=== PATIENT | male | born 1960 | race Caucasian/White ===

== ENCOUNTER 2016-12-25 09:43 | Emergency (ER) | payer OTHER ==
[2016-12-25] MEDS ORDERED: Sodium Chloride 0.9% 1,000 ML ONE ×2 (10:05→11:25)
[2016-12-25] MEDS ORDERED: Ondansetron HCl/PF 4 MG/2 ML Vial ONE (10:05)
[2016-12-25] MEDS ORDERED: Insulin Regular 300 UNITS/3 ML VIAL ONE (10:10)
[2016-12-25 10:23] LABS: #Eosinphils 0.1 thou/uL (0.0-0.7); #Lymphocytes 0.7 thou/uL (1.20-3.40); #Monocytes 0.6 thou/uL (0.11-0.59); #Neutrophils 5.3 thou/uL (1.40-6.50); %Basophils 0.7 % (0.0-1.0); %Eosinophils 1.7 % (0.0-10.0); %Lymphocytes 10.3 % (21.0-51.0); %Monocytes 8.5 % (0.0-10.0); Hematocrit 36.7 % (42.0-52.0); Mean Platelet Volume 6.1 fL (7.4-10.4); Red Blood Cell (RBC) Count 4.12 mill/uL (4.70-6.10); White Blood Cell (WBC) Count 6.7 thou/uL (4.8-10.8)
[2016-12-25 10:28] LABS: ALT (SGPT) 18 U/L (0-55); AST (SGOT) 13 U/L (5-34); Alkaline Phosphatase 59 U/L (40-150); Anion Gap 16 mmol/L (10-20); BUN (Urea Nitrogen) 36 mg/dL (8.4-25.7); Bilirubin, Total 0.5 mg/dL (0.2-1.2); Calc. Creatinine Clearance 0 mL/min (70-130); Calcium 8.9 mg/dL (7.8-10.44); Carbon Dioxide 18 mmol/L (22-29); Chloride 108 mmol/L (98-107); Estimated GFR-MDRD 35; Globulin 2.8 g/dL (2.4-3.5); Protein, Total 6.7 g/dL (6.0-8.3)
[2016-12-25] MEDS ORDERED: Sodium Chloride 0.9% 100 ML ONE (11:20)
[2016-12-25] MEDS ORDERED: Sodium Chloride 0.9% 0 ML ONE (11:20)
== END 2016-12-25 13:22 | disposition short-term general hospital (02) ==
LOC: NAV ERS 09:43
DX: E10.10 Type 1 diabetes mellitus with ketoacidosis without coma (principal); N28.9 Disorder of kidney and ureter, unspecified; I10 Essential (primary) hypertension; E78.5 Hyperlipidemia, unspecified; Z79.84 Long term (current) use of oral hypoglycemic drugs; Z79.82 Long term (current) use of aspirin; Z87.891 Personal history of nicotine dependence
CPT/HCPCS: 36416; 80053; 82010; 85025; 93005; 96361; 96365; 96366; 96375; 96376; J1815; J2405; J7050

== ENCOUNTER 2017-02-13 12:42 | Outpatient (CLI) | payer OTHER ==
[2017-02-13 14:00] LABS: BUN (Urea Nitrogen) 28 mg/dL (8.4-25.7); Calc. Creatinine Clearance 0 mL/min (70-130); Estimated GFR-MDRD 41; Phosphorus 3.3 mg/dL (2.3-4.7); Potassium 5.4 mmol/L (3.5-5.1)
[2017-02-14 17:31] LABS: Creatinine, Urine 59.33 mg/dL (63-166)
== END 2017-02-13 12:43 | disposition home or self-care (01) ==
LOC: NAV SJFMSP 12:42
PROVIDERS: ATTEND Internal Medicine Nephrology
DX: I12.9 Hypertensive chronic kidney disease with stage 1 through stage 4 chronic kidney disease, or unspecified chronic kidney disease (principal); N18.3 Chronic kidney disease, stage 3 (moderate); R80.9 Proteinuria, unspecified
CPT/HCPCS: 36415; 82565; 82570; 84100; 84132; 84156; 84520

== ENCOUNTER 2017-06-03 20:38 | Emergency (ER) | payer OTHER ==
[2017-06-03 21:24] LABS: Band 5 % (5-11); Eosinophils 2 % (0-10); Hemoglobin 10.3 g/dL (14.0-18.0); Lymphocytes 8 % (21-51); MDiff Complete? YES; Mean Corpuscular HGB CONC 33.5 g/dL (32.0-36.0); Mean Corpuscular Hemoglobin 29.6 pg (27.0-31.0); Mean Corpuscular Volume 88.3 fl (80.0-94.0); Mean Platelet Volume 6.1 fL (7.4-10.4); Monocytes 7 % (0-10); Neutrophil 78 % (42-75); PLT Morphology Comment Appears Adequate; Platelet Count 236 thou/uL (130-400); RBC Distribution Width 13.6 % (11.5-14.5); RBC Morphology Normal; White Blood Cell (WBC) Count 9.7 thou/uL (4.8-10.8)
[2017-06-03] MEDS ORDERED: Adacel (T-DAP) 0.5 ML VIAL ONE (21:26)
[2017-06-03 21:30] LABS: ALT (SGPT) 18 U/L (8-55); AST (SGOT) 13 U/L (5-34); Albumin 3.6 g/dL (3.5-5.0); Alkaline Phosphatase 66 U/L (40-150); Anion Gap 14 mmol/L (10-20); BUN (Urea Nitrogen) 35 mg/dL (8.4-25.7); Bilirubin, Total 0.3 mg/dL (0.2-1.2); Calc. Creatinine Clearance 0 mL/min (70-130); Calcium 8.7 mg/dL (7.8-10.44); Carbon Dioxide 20 mmol/L (22-29); Chloride 105 mmol/L (98-107); Estimated GFR-MDRD 30; Globulin 2.6 g/dL (2.4-3.5); Glucose 235 mg/dL (70-105); Protein, Total 6.2 g/dL (6.0-8.3); Sodium 135 mmol/L (136-145)
--- NOTE | 2017-06-03 21:49 | RAD ---
RIGHT FOOT THREE VIEWS 06/03/17 HISTORY: Right foot pain and swelling with redness. Lisfranc joint alignment is anatomic. Pes planus is evident on the lateral view. There are degenerat kianna changes throughout the foot with osteophytosis, joint space narrowing, and subchondral sclerosis . Internal fixation of the medial and lateral malleoli is partially visualized. There is calcificati on in the arterial structures. IMPRESSION: 1. Postoperative changes of the right lower lobe. 2. Moderate osteoarthritic changes of the right foot. No acute osseous abnormalities are demons trated. 3. Atherosclerosis. POS: [facility]
[2017-06-03] MEDS ORDERED: Sodium Chloride 0.9% 250 ML 250 ML ONE (22:01)
[2017-06-03] MEDS ORDERED: Sodium Chloride 0.9% 1,000 ML ONE (23:02)
== END 2017-06-04 00:26 | disposition short-term general hospital (02) ==
LOC: NAV ERS 20:41
DX: L03.115 Cellulitis of right lower limb (principal); S91.331A Puncture wound without foreign body, right foot, initial encounter; E11.40 Type 2 diabetes mellitus with diabetic neuropathy, unspecified; Z23 Encounter for immunization; I25.10 Atherosclerotic heart disease of native coronary artery without angina pectoris; I10 Essential (primary) hypertension; E78.5 Hyperlipidemia, unspecified; Z86.73 Personal history of transient ischemic attack (TIA), and cerebral infarction without residual deficits; Z87.891 Personal history of nicotine dependence; Z79.82 Long term (current) use of aspirin; Z79.84 Long term (current) use of oral hypoglycemic drugs; Z79.4 Long term (current) use of insulin; Z79.899 Other long term (current) drug therapy; W45.8XXA Other foreign body or object entering through skin, initial encounter
CPT/HCPCS: 36415; 80053; 83605; 85025; 85652; 86140; 87040; 90471; 90715; 96365; 96367; J1956; J3370; J7050

== ENCOUNTER 2017-10-21 08:19 | Emergency (ER) | payer OTHER ==
[2017-10-21] MEDS ORDERED: Acetaminophen 500 MG TAB ONE (08:38)
--- NOTE | 2017-10-21 10:14 | RAD ---
3 VIEWS LEFT WRIST: Date: 10/21/17 HISTORY: Pain x2 days. No known reported injury. COMPARISON: None. FINDINGS: Intercarpal and radiocarpal joint spaces are preserved. No fracture. No cortical irregularity. No per iosteal reaction. Vascular calcifications are noted. No significant joint effusion or soft tissue swelling. IMPRESSION: Unremarkable left wrist 3 views. POS: [facility]
== END 2017-10-21 09:11 | disposition home or self-care (01) ==
LOC: NAV ERS 08:19
DX: S60.212A Contusion of left wrist, initial encounter (principal); M19.90 Unspecified osteoarthritis, unspecified site; I25.10 Atherosclerotic heart disease of native coronary artery without angina pectoris; E11.9 Type 2 diabetes mellitus without complications; E03.9 Hypothyroidism, unspecified; I10 Essential (primary) hypertension; Z79.82 Long term (current) use of aspirin; E78.5 Hyperlipidemia, unspecified; Z79.84 Long term (current) use of oral hypoglycemic drugs; Z79.899 Other long term (current) drug therapy; W22.8XXA Striking against or struck by other objects, initial encounter

== ENCOUNTER 2017-11-18 13:29 | Emergency (ER) | payer OTHER ==
[2017-11-18] MEDS ORDERED: Acetaminophen/Codeine 30-300mg Tablet ONE (13:53)
--- NOTE | 2017-11-18 15:30 | RAD ---
LEFT RIB SERIES 4 VIEWS: CLINICAL HISTORY: Cough with rib pain. FINDINGS: No displaced left rib fracture visualized. There is a mild pleural-based density of the inferior lef t chest. Evidence of prior sternotomy partially visualized. There is incidental note of metallic fusion of the cervicothoracic region. IMPRESSION: 1. No displaced left rib fracture. 2. Pleural-based density of the inferior left chest. Consider followup with dedicated chest radiogr aph series, 2 view. POS: [facility]
== END 2017-11-18 14:33 | disposition home or self-care (01) ==
LOC: NAV ERS 13:29
DX: S29.011A Strain of muscle and tendon of front wall of thorax, initial encounter (principal); I25.10 Atherosclerotic heart disease of native coronary artery without angina pectoris; E11.9 Type 2 diabetes mellitus without complications; E03.9 Hypothyroidism, unspecified; E78.5 Hyperlipidemia, unspecified; I10 Essential (primary) hypertension; Z79.82 Long term (current) use of aspirin; Z79.899 Other long term (current) drug therapy; Z79.84 Long term (current) use of oral hypoglycemic drugs; X58.XXXA Exposure to other specified factors, initial encounter

== ENCOUNTER 2018-04-14 01:48 | Emergency (ER) | payer OTHER ==
[2018-04-14 02:29] LABS: ALT (SGPT) 26 U/L (8-55); AST (SGOT) 17 U/L (5-34); Albumin 4.1 g/dL (3.5-5.0); Alkaline Phosphatase 73 U/L (40-150); Anion Gap 16 mmol/L (10-20); BUN (Urea Nitrogen) 51 mg/dL (8.4-25.7); Bilirubin, Total 0.2 mg/dL (0.2-1.2); Calc. Creatinine Clearance 0 mL/min (70-130); Calcium 9.6 mg/dL (7.8-10.44); Carbon Dioxide 22 mmol/L (22-29); Chloride 105 mmol/L (98-107); Estimated GFR-MDRD 25; Glucose 264 mg/dL (70-105); Potassium 4.6 mmol/L (3.5-5.1); Protein, Total 7.1 g/dL (6.0-8.3); Sodium 138 mmol/L (136-145)
[2018-04-14 02:32] LABS: CKMB 5.7 ng/mL (0-6.6); Troponin I 0.014 ng/mL (< 0.028)
[2018-04-14 02:35] LABS: #Basophils 0.1 thou/uL (0.0-0.2); #Eosinphils 0.4 thou/uL (0.0-0.7); #Lymphocytes 1.3 thou/uL (1.20-3.40); #Monocytes 0.9 thou/uL (0.11-0.59); %Basophils 0.9 % (0.0-1.0); %Eosinophils 4.6 % (0.0-10.0); %Lymphocytes 17.3 % (21.0-51.0); %Monocytes 12.1 % (0.0-10.0); Hemoglobin 10.6 g/dL (14.0-18.0); Hypochromia SLIGHT = 6-15 cells (100X) (0-5/hpf); MDiff Complete? YES; Mean Corpuscular HGB CONC 30.9 g/dL (32.0-36.0); Mean Corpuscular Hemoglobin 24.8 pg (27.0-31.0); Mean Corpuscular Volume 80.3 fl (80.0-94.0); Mean Platelet Volume 6.8 fL (7.4-10.4); Monocytes 100 % (0-10); PLT Morphology Comment Appears Adequate; Platelet Count 243 thou/uL (130-400); RBC Distribution Width 16.1 % (11.5-14.5); Red Blood Cell (RBC) Count 4.26 mill/uL (4.70-6.10); White Blood Cell (WBC) Count 7.7 thou/uL (4.8-10.8)
== END 2018-04-14 02:40 | disposition home or self-care (01) ==
LOC: NAV ERS 01:48
DX: F41.9 Anxiety disorder, unspecified (principal); E11.65 Type 2 diabetes mellitus with hyperglycemia; E11.22 Type 2 diabetes mellitus with diabetic chronic kidney disease; I12.9 Hypertensive chronic kidney disease with stage 1 through stage 4 chronic kidney disease, or unspecified chronic kidney disease; N18.9 Chronic kidney disease, unspecified; R60.0 Localized edema; I25.10 Atherosclerotic heart disease of native coronary artery without angina pectoris; I25.2 Old myocardial infarction; E03.9 Hypothyroidism, unspecified; E78.5 Hyperlipidemia, unspecified; Z86.73 Personal history of transient ischemic attack (TIA), and cerebral infarction without residual deficits; Z79.82 Long term (current) use of aspirin; Z79.4 Long term (current) use of insulin; Z79.899 Other long term (current) drug therapy
CPT/HCPCS: 80053; 82553; 84484; 85025; 93005

== ENCOUNTER 2018-05-03 18:30 | Emergency (ER) | payer OTHER ==
--- NOTE | 2018-05-03 19:27 | RAD ---
RADIOGRAPH CHEST 1 VIEW: 05/03/18 HISTORY: 58-year-old with altered mental status. FINDINGS: There are no air space densities, pulmonary edema, pneumothorax, or cardiomegaly. The lateral costop hrenic angles are sharp. There is free intraperitoneal air inferior to the diaphragm bilaterally, and at midline. Sternotomy wires. Surgical clips over the left cardiac shadow. ACDF hardware at lower C- spine/upper T-spine. IMPRESSION: 1. No acute cardiopulmonary findings. 2. Pneumoperitoneum. This is consistent with the history of recent abdominal surgery four days a go. 3. Status post coronary bypass graft surgery is evidence for coronary atherosclerotic disease. 4. Status post anterior discectomy and fusion at the cervicothoracic junction. fredis [] POS: [facility]
[2018-05-03 19:29] LABS: #Eosinphils 0.2 thou/uL (0.0-0.7); #Lymphocytes 1.1 thou/uL (1.20-3.40); #Monocytes 0.9 thou/uL (0.11-0.59); #Neutrophils 5.2 thou/uL (1.40-6.50); %Basophils 0.5 % (0.0-1.0); %Eosinophils 3.1 % (0.0-10.0); %Lymphocytes 14.3 % (21.0-51.0); %Monocytes 11.9 % (0.0-10.0); %Neutrophils 70.3 % (42.0-75.0); Hemoglobin 9.1 g/dL (14.0-18.0); Mean Corpuscular HGB CONC 32.4 g/dL (32.0-36.0); Mean Corpuscular Hemoglobin 26.3 pg (27.0-31.0); Mean Corpuscular Volume 81.3 fL (78.0-98.0); Mean Platelet Volume 6.6 fL (7.4-10.4); Platelet Count 227 thou/uL (130-400); RBC Distribution Width 16.6 % (11.5-14.5); Red Blood Cell (RBC) Count 3.46 mill/uL (4.70-6.10); White Blood Cell (WBC) Count 7.4 thou/uL (4.8-10.8)
[2018-05-03 19:34] LABS: ALT (SGPT) 19 U/L (8-55); AST (SGOT) 14 U/L (5-34); Albumin 3.5 g/dL (3.5-5.0); Alkaline Phosphatase 66 U/L (40-150); Anion Gap 14 mmol/L (10-20); BUN (Urea Nitrogen) 38 mg/dL (8.4-25.7); Bilirubin, Total 0.5 mg/dL (0.2-1.2); CK (CPK) 144 U/L (30-200); Calc. Creatinine Clearance 0 mL/min (70-130); Calcium 8.6 mg/dL (7.8-10.44); Carbon Dioxide 21 mmol/L (22-29); Chloride 105 mmol/L (98-107); Estimated GFR-MDRD 22; Globulin 2.5 g/dL (2.4-3.5); Glucose 294 mg/dL (70-105); Potassium 4.2 mmol/L (3.5-5.1); Sodium 136 mmol/L (136-145)
[2018-05-03 19:50] LABS: Bilirubin Small (Negative); Blood, Urine Moderate (Negative); Glucose, Urine (Dipstick) 100 mg/dL (Negative); Leukocyte Small (Negative); Nitrite Negative (Negative); Protein, Urine (Dipstick) 100 mg/dL (Neg-Trace); Specific Gravity, Urine 1.025 (1.005-1.030)
[2018-05-03 20:04] LABS: Bacteria/HPF Rare-Few HPF (None Seen); Clarity SL HAZY (Clear); Crystals/HPF 1+ AMORPH URATES HPF (Negative); Hyaline Casts/LPF 0-3 HYALINE CAST LPF (0-3 Hyaline); Squamous Epithelial 0-3 HPF (0-3)
[2018-05-03] MEDS ORDERED: Cipro 250 MG TAB ONE (20:25)
== END 2018-05-03 20:35 | disposition home or self-care (01) ==
LOC: NAV ERS 18:30
DX: N39.0 Urinary tract infection, site not specified (principal); E86.0 Dehydration; I25.2 Old myocardial infarction; E03.9 Hypothyroidism, unspecified; E78.5 Hyperlipidemia, unspecified; F41.9 Anxiety disorder, unspecified; Z79.82 Long term (current) use of aspirin; Z79.899 Other long term (current) drug therapy; Z79.4 Long term (current) use of insulin
CPT/HCPCS: 36416; 71045; 80053; 81003; 81015; 82010; 82550; 85025

== ENCOUNTER 2018-05-06 09:12 | Emergency (ER) | payer OTHER | END 2018-05-06 09:47 | disposition home or self-care (01) | LOC: NAV ERS 09:12 | DX: K91.870 Postprocedural hematoma of a digestive system organ or structure following a digestive system procedure (principal); I25.2 Old myocardial infarction; I25.10 Atherosclerotic heart disease of native coronary artery without angina pectoris; E03.9 Hypothyroidism, unspecified; E78.5 Hyperlipidemia, unspecified; I10 Essential (primary) hypertension; F41.9 Anxiety disorder, unspecified; Z87.891 Personal history of nicotine dependence; Z79.899 Other long term (current) drug therapy; Z79.82 Long term (current) use of aspirin; Z79.4 Long term (current) use of insulin | CPT/HCPCS: 99282 ==

== ENCOUNTER 2019-03-25 13:07 | Emergency (ER) | payer OTHER ==
[2019-03-25 13:37] LABS: #Basophils 0.1 thou/uL (0.0-0.2); #Eosinphils 0.7 thou/uL (0.0-0.7); #Lymphocytes 1.4 thou/uL (1.20-3.40); #Monocytes 0.9 thou/uL (0.11-0.59); #Neutrophils 5.1 thou/uL (1.40-6.50); %Basophils 0.7 % (0.0-1.0); %Eosinophils 9.2 % (0.0-10.0); %Lymphocytes 17.1 % (21.0-51.0); %Monocytes 10.6 % (0.0-10.0); %Neutrophils 62.4 % (42.0-75.0); Hemoglobin 11.7 g/dL (14.0-18.0); Mean Corpuscular HGB CONC 31.6 g/dL (32.0-36.0); Mean Corpuscular Hemoglobin 28.3 pg (27.0-31.0); Mean Corpuscular Volume 89.5 fL (78.0-98.0); Platelet Count 321 thou/uL (130-400); RBC Distribution Width 12.9 % (11.5-14.5); Red Blood Cell (RBC) Count 4.14 mill/uL (4.70-6.10); White Blood Cell (WBC) Count 8.1 thou/uL (4.8-10.8)
--- NOTE | 2019-03-25 13:46 | RAD ---
PORTABLE CHEST ONE VIEW: 03/25/2019 1:22 p.m. HISTORY: Chest pain. COMPARISON: 06/25/2018 FINDINGS: Changes of median sternotomy are again seen. The heart size is stable. The lungs are expanded witho ut focal areas of consolidation, pneumothoraces, or pleural effusions. Postop changes in the lower c ervical spine are redemonstrated. IMPRESSION: No acute process. POS: [facility]
[2019-03-25 13:49] LABS: ALT (SGPT) 22 U/L (8-55); AST (SGOT) 19 U/L (5-34); Albumin 3.8 g/dL (3.5-5.0); Alkaline Phosphatase 119 U/L (40-150); Anion Gap 14 mmol/L (10-20); BUN (Urea Nitrogen) 47 mg/dL (8.4-25.7); Bilirubin, Total 0.4 mg/dL (0.2-1.2); CK (CPK) 137 U/L (30-200); Calc. Creatinine Clearance 0 mL/min (70-130); Calcium 8.9 mg/dL (7.8-10.44); Carbon Dioxide 22 mmol/L (22-29); Chloride 106 mmol/L (98-107); Estimated GFR-MDRD 23; Globulin 2.9 g/dL (2.4-3.5); Glucose 95 mg/dL (70-105); Potassium 4.6 mmol/L (3.5-5.1); Protein, Total 6.7 g/dL (6.0-8.3); Sodium 137 mmol/L (136-145)
== END 2019-03-25 14:16 | disposition home or self-care (01) ==
LOC: NAV ERS 13:07
DX: H81.13 Benign paroxysmal vertigo, bilateral (principal); I25.2 Old myocardial infarction; I25.10 Atherosclerotic heart disease of native coronary artery without angina pectoris; E11.9 Type 2 diabetes mellitus without complications; E03.9 Hypothyroidism, unspecified; F41.9 Anxiety disorder, unspecified; Z86.73 Personal history of transient ischemic attack (TIA), and cerebral infarction without residual deficits; Z87.891 Personal history of nicotine dependence
CPT/HCPCS: 36416; 71045; 80053; 82550; 84484; 85025; 93005

== ENCOUNTER 2019-05-06 10:21 | Emergency (ER) | payer OTHER ==
[2019-05-06 10:49] LABS: Bilirubin Negative (Negative); Blood, Urine Negative (Negative); Clarity Clear (Clear); Glucose, Urine (Dipstick) 250 mg/dL (Negative); Leukocyte Negative (Negative); Nitrite Negative (Negative); Protein, Urine (Dipstick) 100 mg/dL (Neg-Trace); Urobilinogen 0.2 mg/dL (0.2-1.0)
[2019-05-06 11:16] LABS: Bacteria/HPF None Seen HPF (None Seen); Hyaline Casts/LPF 0-3 HYALINE CAST LPF (0-3 Hyaline); RBC/HPF 0-3 HPF (0-3); Squamous Epithelial 0-3 HPF (0-3); WBC/HPF 0-3 HPF (0-3)
== END 2019-05-06 11:10 | disposition home or self-care (01) ==
LOC: NAV ERS 10:21
DX: R30.0 Dysuria (principal); I25.2 Old myocardial infarction; I25.10 Atherosclerotic heart disease of native coronary artery without angina pectoris; E11.9 Type 2 diabetes mellitus without complications; E03.9 Hypothyroidism, unspecified; E78.5 Hyperlipidemia, unspecified; I10 Essential (primary) hypertension; F41.9 Anxiety disorder, unspecified; Z87.891 Personal history of nicotine dependence; Z79.82 Long term (current) use of aspirin; Z86.73 Personal history of transient ischemic attack (TIA), and cerebral infarction without residual deficits; Z79.899 Other long term (current) drug therapy
CPT/HCPCS: 81003; 81015; 87086; 99283

== ENCOUNTER 2019-08-06 13:24 | Emergency (ER) | payer OTHER ==
[2019-08-06] MEDS ORDERED: Acetaminophen/Codeine 30-300mg Tablet ONE (14:00)
--- NOTE | 2019-08-06 14:19 | RAD ---
3 views right shoulder: 08/06/2019 COMPARISON: None HISTORY: Fall FINDINGS: No fracture or dislocation. No radiopaque foreign body or subcutaneous gas. There is mild d egenerative change involving the right acromioclavicular joint with interspace narrowing and anterior osteophyte formation. IMPRESSION: No acute findings.
--- NOTE | 2019-08-06 14:22 | RAD ---
XR Ribs Rt>= 2 View W/PA CXR History: Pain after a fall Comparison: Radiograph chest 2019 Findings: Old right posterior rib fractures. No acute displaced right rib fracture. Lungs are clear. No pneumothorax or effusion. Cardiac silhouette and mediastinal contours are similar . Impression: No acute displaced rib fracture or acute intrathoracic abnormality.
== END 2019-08-06 14:37 | disposition home or self-care (01) ==
LOC: NAV ERS 13:24
DX: S43.401A Unspecified sprain of right shoulder joint, initial encounter (principal); S20.211A Contusion of right front wall of thorax, initial encounter; E11.9 Type 2 diabetes mellitus without complications; E03.9 Hypothyroidism, unspecified; E78.5 Hyperlipidemia, unspecified; F41.9 Anxiety disorder, unspecified; I10 Essential (primary) hypertension; I25.10 Atherosclerotic heart disease of native coronary artery without angina pectoris; I25.2 Old myocardial infarction; Z86.73 Personal history of transient ischemic attack (TIA), and cerebral infarction without residual deficits; Z87.891 Personal history of nicotine dependence; Z79.82 Long term (current) use of aspirin; Z79.899 Other long term (current) drug therapy; W10.1XXA Fall (on)(from) sidewalk curb, initial encounter
CPT/HCPCS: 94799

== ENCOUNTER 2019-11-23 13:22 | Emergency (ER) | payer OTHER ==
--- NOTE | 2019-11-23 14:09 | RAD ---
EXAM: Chest PA and lateral: HISTORY: Cough COMPARISON: 01/02/2014 FINDINGS: Sternotomy wires are noted. Incompletely evaluated cervical fusion hardware Heart: Normal cardiac silhouette Aorta: Unremarkable Pulmonary vessels: Normal Costophrenic angles: Costophrenic angles are clear. Lungs: No consolidation or masses. Pneumothorax: No pneumothorax Osseous structures: No osseous abnormalities IMPRESSION: No acute cardiopulmonary process.
== END 2019-11-23 14:21 | disposition home or self-care (01) ==
LOC: NAV ERS 13:22
DX: J06.9 Acute upper respiratory infection, unspecified (principal); K59.00 Constipation, unspecified; E11.9 Type 2 diabetes mellitus without complications; E03.9 Hypothyroidism, unspecified; E78.5 Hyperlipidemia, unspecified; F41.9 Anxiety disorder, unspecified; I25.10 Atherosclerotic heart disease of native coronary artery without angina pectoris; I25.2 Old myocardial infarction; I10 Essential (primary) hypertension; Z86.73 Personal history of transient ischemic attack (TIA), and cerebral infarction without residual deficits; Z87.891 Personal history of nicotine dependence; Z85.00 Personal history of malignant neoplasm of unspecified digestive organ; Z79.82 Long term (current) use of aspirin; Z79.899 Other long term (current) drug therapy
CPT/HCPCS: 71046